=== PATIENT | female | born 2000 | race American Indian/Alaskan Native ===

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

== ENCOUNTER 2019-06-02 08:09 | Emergency (ER) | payer SELFPAY ==
[2019-06-02 08:16] VITALS: BP 121/82
[2019-06-02] MEDS ORDERED: ACETAMINOPHEN 325 MG TAB PO ONE (10:00)
[2019-06-02] MEDS ORDERED: ONDANSETRON 4 MG ODT TAB PO ONE (10:00)
--- NOTE | 2019-06-02 10:01 | Emergency Department Report ---
ED General Adult HPI - General Chief complaint: Nausea/Vomiting/Diarrhea Stated complaint: VOMIT Time Seen by Provider: 06/02/19 09:49 Source: patient, RN notes reviewed Mode of arrival: Ambulatory Limitations: No Limitations - History of Present Illness Initial comments: The patient is a 18-year-old female who is not known to this provider previously, who denies chronic medical conditions indicates that she is not , and states that she does not have a local primary care doctor. She presents to the emergency room with a complaint of resolved nausea, vomiting and diarrhea. Symptoms started yesterday. They are now resolved. She states that she has no irritative or obstructive urinary symptoms. One loose bowel movement in the past 24 hours. Emesis is yellow, nonbloody, nonbilious, and now resolved. Patient consumes marijuana recreationally but otherwise no recreational drugs. Denies physical pain at this time, and is asking to eat and drink. -: Gradual Consistency: now resolved Improves with: none Worsens with: none - Related Data Previous Rx's Medication Instructions Recorded Last Taken Type Ibuprofen [Motrin] 600 mg PO Q8H PRN #12 tablet 10/30/18 Unknown Rx Ondansetron [Zofran Odt] 4 mg PO Q4HR PRN #20 tab.rapdis 12/19/18 Unknown Rx Ondansetron [Zofran Odt] 4 mg PO Q8HR PRN #20 tab.rapdis 06/02/19 Unknown Rx Allergies Allergy/AdvReac Type Severity Reaction Status Date / Time No Known Allergies Allergy Unverified 10/30/18 16:14 ED Review of Systems ROS: Stated complaint: VOMIT Other details as noted in HPI Constitutional: denies: fever Eyes: denies: eye discharge ENT: denies: congestion Respiratory: denies: wheezing Cardiovascular: denies: syncope Gastrointestinal: nausea, vomiting Genitourinary: denies: dysuria Musculoskeletal: as per HPI Skin: as per HPI Neurological: as per HPI Psychiatric: as per HPI Hematological/Lymphatic: denies: easy bleeding ED Past Medical Hx - Past Medical History Previous Medical History?: No - Surgical History Past Surgical History?: No - Social History Smoking Status: Never Smoker Substance Use Type: None - Medications Home Medications: Home Medications Medication Instructions Recorded Confirmed Last Taken Type Ibuprofen [Motrin] 600 mg PO Q8H PRN #12 tablet 10/30/18 Unknown Rx Ondansetron [Zofran Odt] 4 mg PO Q4HR PRN #20 tab.rapdis 12/19/18 Unknown Rx Ondansetron [Zofran Odt] 4 mg PO Q8HR PRN #20 tab.rapdis 06/02/19 Unknown Rx ED Physical Exam - General Limitations: No Limitations General appearance: alert, in no apparent distress - Head Head exam: Present: atraumatic, normocephalic - Eye Eye exam: Present: normal appearance, EOMI. Absent: nystagmus - ENT ENT exam: Present: normal exam, normal orophraynx, mucous membranes moist, normal external ear exam - Neck Neck exam: Present: normal inspection, full ROM. Absent: tenderness, meningismus - Respiratory Respiratory exam: Present: normal lung sounds bilaterally. Absent: respiratory distress - Cardiovascular Cardiovascular Exam: Present: regular rate, normal rhythm, normal heart sounds. Absent: bradycardia, tachycardia, irregular rhythm, systolic murmur, diastolic murmur, rubs, gallop - GI/Abdominal GI/Abdominal exam: Present: soft. Absent: distended, tenderness, guarding, rebound, rigid, pulsatile mass - Extremities Exam Extremities exam: Present: normal inspection, full ROM, other (2+ pulses noted in the bilateral upper and lower extremities. There is no long bony tenderness. The pelvis is stable. The muscular compartments are soft. There is no palpable cord. There is no redness, pus or streaking.). Absent: pedal edema, calf tenderness - Back Exam Back exam: Present: normal inspection, full ROM. Absent: tenderness, CVA tenderness (R), CVA tenderness (L), paraspinal tenderness, vertebral tenderness - Neurological Exam Neurological exam: Present: alert, normal gait, other (there is no facial droop. Tongue is midline. Extraocular movements are intact bilaterally. Walking with a steady gait. Speaking in full sentences. Normal appropriate thought content. 5 out of 5 strength in 4 extremities. Sensation is intact to light touch in 4 extremities.). Absent: motor sensory deficit - Psychiatric Psychiatric exam: Present: normal affect, normal mood - Skin Skin exam: Present: warm, dry, intact, normal color. Absent: rash ED Course Vital Signs 06/02/19 06/02/19 08:13 12:32 Temperature 97.9 F 98.1 F Pulse Rate 74 85 Respiratory 20 16 Rate Blood Pressure 121/82 O2 Sat by Pulse 100 100 Oximetry - Reevaluation(s) Reevaluation #1: 06/02/19 12:27 ua negative no active vomiting will d/c delay secondary to lab having the urinalysis machine break down ED Medical Decision Making - Lab Data Vital Signs 06/02/19 08:13 Temperature 97.9 F Pulse Rate 74 Respiratory 20 Rate Blood Pressure 121/82 O2 Sat by Pulse 100 Oximetry Lab Results 06/02/19 Range/Units 10:05 Urine HCG, Qual Negative (Negative) - Medical Decision Making Differential diagnosis, including but not limited to: Enteritis, side effects of cannabis Assessment and plan: 18-year-old female with resolved nausea, vomiting and diarrhea. The patient is afebrile with reassuring vital signs, with a soft benign abdomen. She is tolerating liquid feeds. I personally witnessed the patient's drinking liquids without difficulty. Patient counseled to discontinue cannabis consumption. Urinalysis shows that patient is not . Critical care attestation.: If time is entered above; I have spent that time in minutes in the direct care of this critically ill patient, excluding procedure time. ED Disposition Clinical Impression: Nausea & vomiting, History of diarrhea Disposition: DC-01 TO HOME OR SELFCARE Is pt being admited?: No Does the pt Need Aspirin: No Condition: Stable Additional Instructions: Advance diet as tolerated. Initiate plenty of fluids, bread, rice, applesauce, toast. Make certain to wash hands very thoroughly with soap and water. Discontinue and avoid consumption and secondhand exposure of marijuana, as this may contribute to symptoms. Patient may take [id number] Tylenol, and/or ibuprofen, as needed for symptoms of pain. Take nausea medication as needed and directed. Follow-up with a primary care doctor within the next 2-4 weeks. Return to the emergency room right away with new, worsening or different symptoms not present on the initial emergency room evaluation. Prescriptions: Ondansetron [Zofran Odt] 4 mg PO Q8HR PRN #20 tab.rapdis PRN Reason: Nausea Referrals: COLEMAN CARABALLO MD [Staff Physician] - 3-5 Days [facility] [Provider Group] - 3-5 Days Forms: Work/School Release Form(ED)
[2019-06-02 10:35] LABS: HCG Qualitative,Urine Negative (Negative)
[2019-06-02 11:49] LABS: Bilirubin,Urine Negative (Negative); Color,Urine Straw (Yellow)
[2019-06-02 11:50] LABS: Blood,Urine Negative (Negative)
== END 2019-06-02 13:18 | disposition home or self-care (01) ==
LOC: ED 08:09
DX: R11.2 Nausea with vomiting, unspecified (principal); R19.7 Diarrhea, unspecified; Z79.899 Other long term (current) drug therapy
CPT/HCPCS: 81001; 81025; Q0162

== ENCOUNTER 2019-07-14 11:08 | Emergency (ER) | payer SELFPAY ==
--- NOTE | 2019-07-14 12:48 | Emergency Department Report ---
Blank Doc - Documentation Documentation: 18-year-old female that presents with vaginal bleeding and pelvic pain. Stated had a positive test. This initial assessment/diagnostic orders/clinical plan/treatment(s) is/are subject to change based on patient's health status, clinical progression and re- assessment by fellow clinical providers in the ED. Further treatment and workup at subsequent clinical providers discretion. Patient/guardians urged not to elope from the ED as their condition may be serious if not clinically assessed and managed. Initial orders include: 1- Patient sent to [facility] for further evaluation and treatment 2- labs 3- US OB
[2019-07-14 12:49] VITALS: BP 134/78
--- NOTE | 2019-07-14 13:30 | Emergency Department Report ---
ED Female HPI - General Chief complaint: Vaginal Bleeding Stated complaint: POSS MISSCARRAGE Time Seen by Provider: 07/14/19 12:47 Source: patient Mode of arrival: Ambulatory Limitations: No Limitations - History of Present Illness Initial comments: 18-year-old -[place] female presents to the emergency room complaining of vaginal bleeding x3 days. Patient reports her last menstrual period was 06/15/2019. Patient does not have a history of abnormal menses. Patient denies any vaginal discharge. Patient reports she took a home test 2 weeks ago and had 2 lines. Patient admits to some cramping. Patient is gone through 6 pads in the last 3 days. Patient does admit to having unprotected intercourse. Complaint: vaginal bleeding Onset/Timin -: days(s) Radiation: non-radiating Severity scale (0 -10): 8 Quality: cramping Consistency: intermittent Improves with: none Worsens with: none Last Menstrual Period: 06/15/19 EDC: 03/21/20 Associated Symptoms: nausea/vomiting (No vomiting) - Related Data Sexually active: Yes Previous Rx's Medication Instructions Recorded Last Taken Type Ibuprofen [Motrin] 600 mg PO Q8H PRN #12 tablet 10/30/18 Unknown Rx Ondansetron [Zofran Odt] 4 mg PO Q4HR PRN #20 tab.rapdis 12/19/18 Unknown Rx Ondansetron [Zofran Odt] 4 mg PO Q8HR PRN #20 tab.rapdis 06/02/19 Unknown Rx Allergies Allergy/AdvReac Type Severity Reaction Status Date / Time No Known Allergies Allergy Unverified 10/30/18 16:14 ED Review of Systems ROS: Stated complaint: POSS MISSCARRAGE Other details as noted in HPI Comment: All other systems reviewed and negative ED Past Medical Hx - Past Medical History Previous Medical History?: No - Surgical History Past Surgical History?: No - Social History Smoking Status: Never Smoker Substance Use Type: None - Medications Home Medications: Home Medications Medication Instructions Recorded Confirmed Last Taken Type Ibuprofen [Motrin] 600 mg PO Q8H PRN #12 tablet 10/30/18 Unknown Rx Ondansetron [Zofran Odt] 4 mg PO Q4HR PRN #20 tab.rapdis 12/19/18 Unknown Rx Ondansetron [Zofran Odt] 4 mg PO Q8HR PRN #20 tab.rapdis 06/02/19 Unknown Rx ED Physical Exam - General Limitations: No Limitations General appearance: alert, in no apparent distress - Head Head exam: Present: atraumatic, normocephalic - Eye Eye exam: Present: normal appearance - Cardiovascular Cardiovascular Exam: Present: regular rate, normal rhythm. Absent: systolic murmur, diastolic murmur, rubs, gallop - Extremities Exam Extremities exam: Present: normal inspection - Neurological Exam Neurological exam: Present: alert, oriented X3, normal gait - Psychiatric Psychiatric exam: Present: normal affect, normal mood - Skin Skin exam: Present: warm, dry, intact, normal color. Absent: rash ED Course Vital Signs 07/14/19 12:47 Temperature 98.4 F Pulse Rate 80 Respiratory 18 Rate Blood Pressure 134/78 O2 Sat by Pulse 99 Oximetry ED Medical Decision Making - Medical Decision Making 18-year-old -[place] female presents to the emergency room complaining of vaginal bleeding x3 days. Patient reports her last menstrual period was 06/15/2019. Patient does not have a history of abnormal menses. Patient denies any vaginal discharge. Patient reports she took a home test 2 weeks ago and had 2 lines. Patient admits to some cramping. Patient is gone through 6 pads in the last 3 days. Patient does admit to having unprotected intercourse. hCG less than 2 patient is not patient needs to use protection and follow-up with her primary care provider Critical care attestation.: If time is entered above; I have spent that time in minutes in the direct care of this critically ill patient, excluding procedure time. ED Disposition Clinical Impression: test negative Disposition: DC-01 TO HOME OR SELFCARE Is pt being admited?: No Does the pt Need Aspirin: No Condition: Stable Additional Instructions: Negative test
[2019-07-14 15:28] LABS: Bilirubin,Urine NEG (Negative); Blood,Urine LG (Negative); Color,Urine Amber (Yellow); Mucus,Urine 3+ /HPF; Urobilinogen,Urine < 2.0 mg/dL (<2.0)
[2019-07-14 15:31] LABS: RBC,Urine > 182.0 /HPF (0.0-6.0)
== END 2019-07-14 15:59 | disposition home or self-care (01) ==
LOC: ED 11:08
DX: N93.9 Abnormal uterine and vaginal bleeding, unspecified (principal)
CPT/HCPCS: 36415; 81001; 84702; 99283